=== PATIENT | male | born 1990 | race Caucasian/White ===

== ENCOUNTER 2021-02-06 08:36 | Emergency (ER) | payer OTHER ==
[~2021-02-06] VITALS: Ht 180.3 cm; Wt 73.8 kg
[2021-02-06] MEDS ORDERED: ACETAMINOPHEN 325 MG TAB PO ONE (09:05)
--- NOTE | 2021-02-06 09:52 | REP ---
INDICATION: swollen painful erythematous lump left testicle. COMPARISON: None. TECHNIQUE: Standard grayscale imaging with color Doppler interrogation of the testes. FINDINGS: The right testis is 4.4 x 2.2 x 2.6 cm in the left is 4.4 x 2.2 x 2.9 cm. Both testes are homogeneous in echotexture and show no focal mass, cyst or abnormal calcification. Color flow is symmetric. Doppler tracings show resistive index 0.52 on the right and 0.47 on the left, both normal. There is no evidence of torsion. The epididymal head on the right has a CC diameter 6.8 mm and on the left 8.5 mm. No epididymal cyst. There is no evidence of a hydrocele or varicocele. The area of his a palpable tender erythematous lump lateral to the left testis in the scrotal groin region, there is a 1.8 x 1.1 x 1.4 cm complex small mass. It has some blood flow around its periphery. It is heterogeneous with some hypoechoic and mixed isoechoic tissue. IMPRESSION: 1. Bilateral testes are normal in appearance and show no evidence of torsion, mass, cyst or calcification. 2. No varicocele, hydrocele or epididymal cyst identified. 3. The 1.8 x 1.1 x 1.4 cm subcutaneous complex lesion along the left scrotal sac corresponding the palpable finding likely represents phlegmon or developing subcutaneous abscess. <Electronically signed by Stephan Silver > 02/06/21 0948
[2021-02-06] MEDS ORDERED: CEPH500T PO (10:08)
[2021-02-06] MEDS ORDERED: CEPHALEXIN 500 MG CAP PO ONE (10:10)
[2021-02-06 10:16] VITALS: BP 140/78
== END 2021-02-06 10:17 | disposition home or self-care (01) ==
LOC: M ED 08:36
DX: N45.4 Abscess of epididymis or testis (principal)

== ENCOUNTER 2021-02-08 15:11 | Emergency (ER) | payer OTHER ==
[~2021-02-08] VITALS: Ht 180.3 cm; Wt 72.9 kg
[~2021-02-08 15:11] MED LIST: CEPH500T PO
[2021-02-08 15:33] VITALS: BP 131/64
[2021-02-08] MEDS ORDERED: cefTRIAXone SOD 1GM VIAL (J0696 PER 250MG) IM ONE (17:15)
[2021-02-08] MEDS ORDERED: LIDOCAINE 1% SDV 5ML VIAL DILUENT ONE (17:15)
[2021-02-08] MEDS ORDERED: BACT800T5 PO (17:20)
== END 2021-02-08 17:50 | disposition home or self-care (01) ==
LOC: M ED 15:11
DX: N45.4 Abscess of epididymis or testis (principal)
CPT/HCPCS: 87070; 87077; 87186; 87205; 96372; 99282; J0696

== ENCOUNTER 2021-08-21 16:56 | Emergency (ER) | payer OTHER ==
[~2021-08-21] VITALS: Ht 180.3 cm; Wt 77.6 kg
[~2021-08-21 16:56] MED LIST changes: +BACT800T5 PO
[2021-08-21 16:58] VITALS: BP 138/77
--- OUTSIDE RECORDS SUMMARY | 2021-08-21 17:04 | CCD ---
Author Author [facility] Organization [facility] Address Unknown Phone Unavailable Care Team Providers Care Special Education Paraprofessional Name Role Phone Therese CONTRERAS MD Unavailable Unavailable Therese CONTRERAS MD Unavailable Unavailable Therese CONTRERAS MD Unavailable Unavailable Therese CONTRERAS MD Unavailable Unavailable Therese CONTRERAS MD Unavailable Unavailable Therese CONTRERAS MD Unavailable Unavailable Therese CONTRERAS MD Unavailable Unavailable Therese CONTRERAS MD Unavailable Unavailable Therese CONTRERAS MD Unavailable Unavailable Therese CONTRERAS MD Unavailable Unavailable Therese CONTRERAS MD Unavailable Unavailable Therese CONTRERAS MD Unavailable Unavailable Therese CONTRERAS MD Unavailable Unavailable Therese CONTRERAS MD Unavailable Unavailable Therese CONTRERAS MD Unavailable Unavailable Therese CONTRERAS MD Unavailable Unavailable Therese CONTRERAS MD Unavailable Unavailable Therese CONTRERAS MD Unavailable Unavailable Therese CONTRERAS MD Unavailable Unavailable Therese CONTRERAS MD Unavailable Unavailable Therese CONTRERAS MD Unavailable Unavailable Therese CONTRERAS MD Unavailable Unavailable Therese CONTRERAS MD Unavailable Unavailable Therese CONTRERAS MD Unavailable Unavailable Therese CONTRERAS MD Unavailable Unavailable Therese CONTRERAS MD Unavailable Unavailable Therese CONTRERAS MD Unavailable Unavailable Therese CONTRERAS MD Unavailable Unavailable Therese CONTRERAS MD Unavailable Unavailable Therese CONTRERAS MD Unavailable Unavailable Therese CONTRERAS MD Unavailable Unavailable Therese CONTRERAS MD Unavailable Unavailable Re-disclosure Warning The records that you are about to access may contain information from federally-assisted alcohol or drug abuse programs. If such information is present, then the following federally mandated warning applies: This information has been disclosed to you from records protected by federal confidentiality rules (42 CFR part 2). The federal rules prohibit you from making any further disclosure of this information unless further disclosure is expressly permitted by the written consent of the person to whom it pertains or as otherwise permitted by 42 CFR part 2. A general authorization for the release of medical or other information is NOT sufficient for this purpose. The Federal rules restrict any use of the information to criminally investigate or prosecute any alcohol or drug abuse patient.The records that you are about to access may contain highly sensitive health information, the redisclosure of which is protected by Article 27-F of the [facility] Public Health law. If you continue you may have access to information: Regarding HIV / AIDS; Provided by facilities licensed or operated by the [facility] Office of Mental Health; or Provided by the [facility] Office for People With Developmental Disabilities. If such information is present, then the following [facility] mandated warning applies: This information has been disclosed to you from confidential records which are protected by state law. State law prohibits you from making any further disclosure of this information without the specific written consent of the person to whom it pertains, or as otherwise permitted by law. Any unauthorized further disclosure in violation of state law may result in a fine or retirement sentence or both. A general authorization for the release of medical or other information is NOT sufficient authorization for further disc losure. Encounters Encounter Providers Location Date Indications Data Source(s ) Outpatient Attender: NORAH CONTRERAS MD Family Practice 02/26/2021 0 3:00:00 PM EDT [facility] Outpatient Attender: NORAH CONTRERAS MD 2020 02:44:00 PM EDT - 02/26/2021 02:44:00 PM EDT [facility] Immunizations Vaccine Date Status Description Data Source(s) COVID-19 VACCINE Moderna 03/27/2021 12:00:00 AM EDT completed [facility] Vaccine Series Complete: NOThis Data was Submitted to [facility] Via [employer]. COVID-19 VACCINE Moderna 02/27/2021 12:00:00 AM EDT completed [facility] Vaccine Series Complete: YESThis Data wa s Submitted to [facility] Via [employer]. Medications No Information Insurance Providers Payer name Policy type / Coverage type Policy ID Covered alliance party ID Covered alliance party's relationship to chen Policy Chen Plan Information [employer] [id number] [employer] [place] [id number] Problems, Conditions, and Diagnoses No Information Surgeries/Procedures No Information Results ID Date Data Source [id number] 01/13/2021 08:13:00 AM EST [facility] Name Value Range Interpretation Code Description Data Damaris rce(s) Supporting Document(s) SARS coronavirus 2 RNA Not Detected [facility] [place] This lab was ordered by [facility] and reported by [facility]. ID Date Data Source [id number] 10/06/2020 11:35:00 AM EST [facility] Name Value Range Interpretation Code Description Data Damaris rce(s) Supporting Document(s) [facility] This [facility] was ordered by [facility] and reported by [facility]. Procedure Social History No Information Vital Signs ID Date Data Source UNK Name Value Range Interpretation Code Description Data Source(s) Systolic blood pressure 126 mm[Hg] 126 mm[Hg] [facility] ([facility]) Diastolic blood pressure 68 mm[Hg] 68 mm[Hg] [facility] Heart rate 88 /min 88 /min [facility] ([facility]) Body temperature 97.3 [degF] 97.3 [degF] [facility] ([facility]) Respiratory rate 14 /min 14 /min [facility] ( [facility]) Oxygen saturation in Arterial blood by Pulse oximetry 99 % 99 % [facility] ([facility]) Body weight 165.00 [lb_av] 165.00 [lb_av] [facility] T ([facility]) Body weight 74.844 kg 74.844 kg [facility] ([facility]) Body height 71 [in_i] 71 [in_i] [facility] ([facility]) 5'11" Body mass index (BMI) [Ratio] 23.0 kg/m2 23.0 k g/m2 [facility] ([facility]) Body surface area Derived from formula 1.94 m2 1.94 m2 [facility] ([facility])
[2021-08-21 19:04] LABS: RSV AMPLIFICATION NEGATIVE (NEGATIVE)
--- OUTSIDE RECORDS SUMMARY | 2021-08-21 20:51 | CCD ---
Author Author [facility] Organization [facility] Address Unknown Phone Unavailable Care Team Providers Care Adoption Agent Name Role Phone Therese CONTRERAS MD Unavailable [...] is protected by Article 27-F of the [facility] Public Health law. If you continue you may have access to information: Regarding HIV / AIDS; Provided by facilities licensed or operated by the [facility] Office of Mental Health; or Provided by the [facility] Office for People With Developmental Disabilities. If such information is present, then the following [facility] mandated warning applies: This information has been [...] law may result in a fine or senior living sentence or both. A general authorization for the release of medical or other information is NOT sufficient authorization for further disc losure. Encounters Encounter Providers Location Date Indications Data Source(s ) Outpatient Attender: NORAH CONTRERAS MD Family Practice 02/26/2021 0 3:00:00 PM EDT [facility] Outpatient Attender: NORAH CONTRERAS MD 2020 02:44:00 PM EDT - 02/26/2021 02:44:00 PM EDT [facility] Immunizations Vaccine Date Status Description Data Source(s) COVID-19 VACCINE Moderna 03/27/2021 12:00:00 AM EDT completed [facility] Vaccine Series Complete: NOThis Data was Submitted to [facility] Via [employer]. COVID-19 VACCINE Moderna 02/27/2021 12:00:00 AM EDT completed [facility] Vaccine Series Complete: YESThis Data wa s Submitted to [facility] Via [employer]. Medications No Information Insurance Providers Payer name Policy type / Coverage type Policy ID Covered democrat ID Covered democrat's relationship to chen Policy Chen Plan Information [facility] [employer] [id number] [facility] [place] [place] [id number] Problems, Conditions, and Diagnoses No Information Surgeries/Procedures No Information Results ID Date Data Source [id number] 01/13/2021 08:13:00 AM EST [facility] Name Value Range Interpretation Code Description Data Damaris rce(s) Supporting Document(s) SARS coronavirus 2 RNA Not Detected [facility] [place] This lab was ordered by [facility] and reported by [facility]. ID Date Data Source [id number] 10/06/2020 11:35:00 AM EST [facility] Name Value Range Interpretation Code Description Data Damaris rce(s) Supporting Document(s) SARS coronavirus 2 [facility] This lab was ordered by [facility] and reported by [facility]. Procedure Social History No Information Vital Signs ID Date Data Source UNK Name Value Range Interpretation Code Description Data Source(s) Systolic blood pressure 126 mm[Hg] 126 mm[Hg] [facility] ([facility]) Diastolic blood pressure 68 mm[Hg] 68 mm[Hg] [facility] Heart rate 88 /min 88 /min [facility] ([facility]) Body temperature 97.3 [degF] 97.3 [degF] [facility] ([facility]) Respiratory rate 14 /min 14 /min [facility] ( [facility]) Oxygen saturation in Arterial blood by Pulse oximetry 99 % 99 % [facility] ([facility]) Body weight 165.00 [lb_av] 165.00 [lb_av] [facility] T ([facility]) Body weight 74.844 kg 74.844 kg [facility] ([facility]) Body height 71 [in_i] 71 [in_i] [facility] ([facility]) 5'11" Body mass index (BMI) [Ratio] 23.0 kg/m2 23.0 k g/m2 [facility] ([facility]) Body surface area Derived from formula 1.94 m2 1.94 m2 [facility] ([facility])
== END 2021-08-21 21:20 | disposition home or self-care (01) ==
LOC: M ED 16:56
DX: J06.9 Acute upper respiratory infection, unspecified (principal)

== ENCOUNTER 2021-11-10 15:31 | Emergency (ER) | payer OTHER ==
[~2021-11-10] VITALS: Ht 180.3 cm; Wt 75.4 kg
[2021-11-10 15:31] VITALS: BP 138/81
== END 2021-11-10 18:29 | disposition left against medical advice (07) ==
LOC: M ED 15:31
DX: Z53.21 Procedure and treatment not carried out due to patient leaving prior to being seen by health care provider (principal)